=== PATIENT | male | born 1955 | race Caucasian/White ===

== ENCOUNTER 2020-04-06 08:51 | Emergency (ER) | payer MEDICARE ==
[~2020-04-06] VITALS: Ht 172.7 cm; Wt 82.1 kg
[2020-04-06] MEDS ORDERED: SODIUM CHLORIDE 0.9% 1000ML 1,000 ML IV STA (09:23)
[2020-04-06] MEDS ORDERED: ONDANSETRON HCL INJ 2MG/ML 2ML 2 MG/ML VIAL IV NR (09:30)
[2020-04-06] MEDS ORDERED: MORPHINE SULFATE 2 MG/ML SYR 1ML IV NR (09:30)
[2020-04-06 09:35] LABS: BASOPHILS % 0.2 % (0.0-1.0); EOSINOPHILS % 0.2 % (0.0-6.0); HEMATOCRIT 40.3 % (38.2-49.6); HEMOGLOBIN 13.3 g/dL (14.0-18.0); LYMPHOCYTES # (AUTO) 1.3 (1.0-3.2); LYMPHOCYTES % 10.6 % (18.0-39.1); MEAN CORPUSCULAR VOLUME 93.9 fL (81-99); MONOCYTES # (AUTO) 0.9 (0.2-0.8); MONOCYTES % 7.5 % (4.4-11.3); NEUTROPHILS # (AUTO) 9.9 (2.1-6.9); NEUTROPHILS % 81.1 % (38.7-80.0); PLATELET COUNT 286 x10e3/uL (140-360); RED BLOOD COUNT 4.29 x10e6/uL (4.3-5.7)
[2020-04-06 09:40] LABS: BILIRUBIN,URINE NEGATIVE (NEGATIVE); CLARITY,URINE HAZY (CLEAR); COLOR,URINE YELLOW (YELLOW); KETONES,URINE NEGATIVE (NEGATIVE); LEUKOCYTE ESTERASE ,URINE NEGATIVE (NEGATIVE); NITRITE,URINE NEGATIVE (NEGATIVE); PROTEIN,URINE DIPSTICK 1+ (NEGATIVE); URINE UROBILINOGEN 0.2 mg/dL (0.2 - 1)
[2020-04-06 09:44] LABS: INR 0.93; PROTHROMBIN TIME 12.9 seconds (11.9-14.5)
[2020-04-06 09:45] LABS: PARTIAL THROMBOPLASTIN TIME 34.7 seconds (23.8-35.5)
[2020-04-06 09:51] LABS: BACTERIA,URINE MODERATE /HPF; EPITHELIAL CELLS,URINE FEW /LPF; MUCUS,URINE FEW (RARE); RBC,URINE >50 /HPF (0-5)
[2020-04-06 09:55] LABS: ALBUMIN 3.8 g/dL (3.5-5.0); ANION GAP 13.2 mmol/L (8-16); CALCIUM 8.6 mg/dL (8.4-10.2); CREATININE, SERUM 1.31 mg/dL (0.72-1.25); POTASSIUM 4.2 mmol/L (3.5-5.1)
[2020-04-06] MEDS ORDERED: PIPER-TAZ 3.375 GM 50 ML IV ONE (10:00)
[2020-04-06 10:01] LABS: CREATINE KINASE MB 3.4 ng/mL (0-5.0)
--- NOTE | 2020-04-06 10:10 | Emergency Department Note ---
History of Present Illnes History of Present Illness Chief Complaint: Abdominal Complaints History of Present Illness This is a 64 year old male AFTER URINATING EARLY AM HE BEGAN HAVING SHARP LEFT LOWER QUADRANT PAIN WITH NAUSEA. VOMITED X1. DENIES ANY CHEST PAIN, SHORTNESS OF BREATH OR BLOOD IN STOOL. C/O OF LEFT FLANK PAIN ON ASSESSMENT AND TOOK TRAMADOL (6 YRS OLD PILLS) FOR HIS PAIN. Historian: Patient Arrival Mode: Car Additional Treatment THERMOSCREW OPERATOR: NONE Bedspring Assembler Required: No Onset (how long ago): hour(s) Location: LEFT FLANK TO LEFT ABD Quality: SHARP PAIN Radiation: Reports abdomen Severity: severe Onset quality: sudden Timing of current episode: intermittent Progression: waxing and waning Chronicity: new Relieving factors: none Exacerbating factors: none Associated symptoms: Reports nausea/vomiting Past Medical/Family History Physician Review I have reviewed the patient's past medical and family history. Any updates have been documented here. 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 Past Surgical History: Hernia Repair Other Surgery: LEFT ELBOW BILATERAL KNEE CARPAL TUNNEL Social History Smoking Cessation: Current every day smoker Counseling Performed: Yes Alcohol Use: None Any Illegal Drug Use: No TB Exposure/Symptoms: No Physically hurt or threatened: No Family History Family history of heart diseas: No Other Any Pre-Existing Lines (PICC,: No Review of Systems Review of Systems Constitutional: Reports no symptoms EENTM: Reports no symptoms Cardiovascular: Reports no symptoms Respiratory: Reports no symptoms Gastrointestinal: Reports as per HPI Genitourinary: Reports no symptoms Musculoskeletal: Reports no symptoms Integumentary: Reports no symptoms Neurological: Reports no symptoms Psychological: Reports no symptoms Endocrine: Reports no symptoms Hematological/Lymphatic: Reports no symptoms Physical Exam Related Data Allergies: Coded Allergies: No Known Allergies (Unverified , 04/06/20) Triage Vital Signs Vital Signs Date Time Temp Pulse Resp B/P (MAP) Pulse Ox O2 Delivery O2 Flow Rate FiO2 04/06/20 08:54 97.8 89 18 161/91 100 Room Air Vital signs reviewed: Yes Physical Exam CONSTITUTIONAL Constitutional: Present well-developed, Present well-nourished HENT HENT: Present normocephalic, Present atraumatic, Present oropharynx clear/moist, Present nose normal HENT L/R: Present left ext ear normal, Present right ext ear normal EYES Eyes: Reports PERRL, Reports conjunctivae normal NECK Neck: Present ROM normal PULMONARY Pulmonary: Present effort normal, Present breath sounds normal CARDIOVASCULAR Cardiovascular: Present regular rhythm, Present heart sounds normal, Present capillary refill normal, Present normal rate GASTROINTESTINAL Abdominal: Present soft, Present bowel sounds normal, Present tender (MILD TTP LLQ WITHOUT R/G); Absent guarding, Absent rebound GENITOURINARY Genitourinary: Present exam deferred SKIN Skin: Present warm, Present dry MUSCULOSKELETAL Musculoskeletal: Present ROM normal NEUROLOGICAL Neurological: Present alert, Present oriented x 3, Present no gross motor or sensory deficits PSYCHOLOGICAL Psychological: Present mood/affect normal, Present judgement normal Results Laboratory Result Diagram: 04/06/2015 04/06/20 0915 Laboratory Laboratory Tests Test 04/06/20 09:15 White Blood Count 12.22 x10e3/uL (4.8-10.8) Red Blood Count 4.29 x10e6/uL (4.3-5.7) Hemoglobin 13.3 g/dL (14.0-18.0) Hematocrit 40.3 % (38.2-49.6) Mean Corpuscular Volume 93.9 fL (81-99) Mean Corpuscular Hemoglobin 31.0 pg (28-32) Mean Corpuscular Hemoglobin Concent 33.0 g/dL (31-35) Red Cell Distribution Width 14.0 % (11.7-14.4) Platelet Count 286 x10e3/uL (140-360) Neutrophils (%) (Auto) 81.1 % (38.7-80.0) Lymphocytes (%) (Auto) 10.6 % (18.0-39.1) Monocytes (%) (Auto) 7.5 % (4.4-11.3) Eosinophils (%) (Auto) 0.2 % (0.0-6.0) Basophils (%) (Auto) 0.2 % (0.0-1.0) Neutrophils # (Auto) 9.9 (2.1-6.9) Lymphocytes # (Auto) 1.3 (1.0-3.2) Monocytes # (Auto) 0.9 (0.2-0.8) Eosinophils # (Auto) 0.0 (0.0-0.4) Basophils # (Auto) 0.0 (0.0-0.1) Absolute Immature Granulocyte (auto 0.05 x10e3/uL (0-0.1) Prothrombin Time 12.9 seconds (11.9-14.5) Prothromb Time International Ratio 0.93 Activated Partial Thromboplast Time 34.7 seconds (23.8-35.5) Urine Color Yellow (YELLOW) Urine Clarity Hazy (CLEAR) Urine pH 6 (5 - 7) Urine Specific [place] >=1.030 (1.010-1.025) Urine Protein 1+ (NEGATIVE) Urine Glucose (UA) Negative (NEGATIVE) Urine Ketones Negative (NEGATIVE) Urine Blood Large (NEGATIVE) Urine Nitrite Negative (NEGATIVE) Urine Bilirubin Negative (NEGATIVE) Urine Urobilinogen 0.2 mg/dL (0.2 - 1) Urine Leukocyte Esterase Negative (NEGATIVE) Urine RBC >50 /HPF (0-5) Urine WBC 6-10 /HPF (0-5) Urine Epithelial Cells Few /LPF (NONE) Urine Bacteria Moderate /HPF (NONE) Urine Mucus Few (RARE) Sodium Level 136 mmol/L (136-145) Potassium Level 4.2 mmol/L (3.5-5.1) Chloride Level 105 mmol/L (98-107) Carbon Dioxide Level 22 mmol/L (22-29) Anion Gap 13.2 mmol/L (8-16) Blood Urea Nitrogen 28 mg/dL (7-26) Creatinine 1.31 mg/dL (0.72-1.25) Estimat Glomerular Filtration Rate 55 ML/MIN (60-) BUN/Creatinine Ratio 21 (6-25) Glucose Level 113 mg/dL (74-118) Calcium Level 8.6 mg/dL (8.4-10.2) Magnesium Level 2.0 MG/DL (1.3-2.1) Total Bilirubin 0.3 mg/dL (0.2-1.2) Aspartate Amino Transf (AST/SGOT) 16 IU/L (5-34) Alanine Aminotransferase (ALT/SGPT) 12 IU/L (0-55) Alkaline Phosphatase 76 IU/L (40-150) Creatine Kinase 104 IU/L (30-200) Creatine Kinase MB 3.40 ng/mL (0-5.0) Troponin I 0.010 ng/mL (0-0.300) Total Protein 7.5 g/dL (6.5-8.1) Albumin 3.8 g/dL (3.5-5.0) Globulin 3.7 g/dL (2.3-3.5) Albumin/Globulin Ratio 1.0 (0.8-2.0) Amylase Level 81 U/L (25-125) Lipase 57 U/L (8-78) Lab results reviewed: Yes Imaging Imaging results reviewed: Yes Impressions EXAM: CT Abdomen and Pelvis WITHOUT contrast INDICATION: Stone Protocol, LEFT SIDED ABD PAIN COMPARISON: None. TECHNIQUE: Abdomen and pelvis were scanned utilizing a multidetector helical scanner from the lung base to the pubic symphysis without administration of IV contrast. Absence of intravenous contrast decreases sensitivity for detection of focal lesions and vascular pathology. Coronal and sagittal reformations were obtained. Routine protocol was performed. IV CONTRAST: None ORAL CONTRAST: None COMPLICATIONS: None RADIATION DOSE: Total DLP: 413 mGy*cm Estimated effective dose: (DLP x 0.015 x size factor) mSv CTDIvol has been reviewed. It is below the limits set by the Radiation Protocol Committee (RPC). Dose modulation, iterative reconstruction, and/or weight based adjustment of the mA/kV was utilized to reduce the radiation dose to as low as reasonably achievable. FINDINGS: LINES and TUBES: None. LOWER THORAX: There is bibasilar atelectasis. There is atherosclerotic calcification of coronary vessels. HEPATOBILIARY: No focal hepatic lesions. No biliary ductal dilation. GALLBLADDER: No radio-opaque stones or sludge. No wall thickening. SPLEEN: No splenomegaly. PANCREAS: No focal masses or ductal dilatation. ADRENALS: There is a 3.5 cm left adrenal adenoma. The right adrenal gland is normal. KIDNEYS/URETERS: There is a 3 mm obstructive stone in the left distal ureter (series 3 image 157; series 401 image 74) with mild left hydroureteronephrosis. Nonspecific left perinephric fat stranding is suggestive of forniceal rupture. There is a 1 mm nonobstructive stone in the midpole of the left kidney. The right kidney is normal. GI TRACT: Small hiatal hernia. No abnormal distention, wall thickening, or evidence of bowel obstruction. Appendix is normal. PELVIC ORGANS/BLADDER: Unremarkable. LYMPH NODES: No lymphadenopathy. VESSELS: There is moderate atherosclerotic disease in the aorta and major arterial branches. PERITONEUM / RETROPERITONEUM: No free air or fluid. BONES: There are degenerative changes in the spine. 8 mm lucent lesion with sclerotic margins in the right iliac bone adjacent to the sacroiliac joint. SOFT TISSUES: Unremarkable. IMPRESSION: 1. A 3 mm obstructive stone in the left distal ureter (series 3 image 157; series 401 image 74) with mild left hydroureteronephrosis. 2. Nonobstructive 1 mm left renal stone. 3. A 3.5 cm left adrenal adenoma 4. Small hiatal hernia. 5. An 8 mm lucent lesion with sclerotic margins in the right iliac bone adjacent to the sacroiliac joint. This finding is nonspecific, however, in the absence of known malignancy this is likely benign. Signed by: Imelda Kevin MD on 04/06/2020 10:55 AM Procedures 12 Lead ECG Interpretation ECG Interpretation : ECG: ECG 1 Bedspring Assembler: Interpreted by ED physician Date: Apr 06, 2020 Time: 09:59 Rhythm: sinus rhythm Rate: normal BPM: 99 QRS axis: normal ST segments normal: Yes T waves normal: Yes Clinical Impression: normal ECG Assessment & Plan Medical Decision Making MDM LEFT FLANK/ABD PAIN, TTP LLQ - CBC, CHEM, UA, CT ABD/PELVIS - R/O URETEROLITHIASIS, UTI/PYELO, DIVERTICULITIS, COLITIS Reassessment Reassessment IMPROVED WITH MEDS/IVF'S. DC HOME, STRAIN ALL URINE, FLOMAX, TYL #3, ZOFRAN, OTC IBUPROFEN, CEFTIN 500 BID X 10 DAYS Assessment & Plan Final Impression: (1) Ureterolithiasis Depart Disposition: HOME, SELF-CARE Last Vital Signs Date Time Temp Pulse Resp B/P (MAP) Pulse Ox O2 Delivery O2 Flow Rate FiO2 04/06/20 08:54 97.8 89 18 161/91 100 Room Air Medications in the ED Morphine Sulfate 4 mg ONCE IV Last administered on 04/06/20at 09:49; Admin Dose 4 MG; Start 04/06/20 at 09:30; Stop 04/13/20 at 10:00 Ondansetron HCl 4 mg ONCE IV Last administered on 04/06/20at 09:51; Admin Dose 4 MG; Start 04/06/20 at 09:30; Stop 04/06/20 at 10:59 Sodium Chloride 1,000 ml @ 0 mls/hr Q0M STAT IV Last administered on 04/06/20at 09:36; Admin Dose 999 MLS/HR; Start 04/06/20 at 09:23; Stop 04/06/20 at 09:48; Status DC Piperacillin Sod/ Tazobactam Sod 50 ml @ 50 mls/hr NOW ONCE IV ; Start 04/06/20 at 10:00; Stop 04/06/20 at 10:59 TONIO RIVER MD Apr 06, 2020 10:10
--- NOTE | 2020-04-06 10:44 | Diagnostic Imaging Report ---
EXAMINATION: CHEST SINGLE (PORTABLE) INDICATION: ABD PAIN COMPARISON: Same day abdomen/pelvic CT. FINDINGS: TUBES and LINES: None. LUNGS: Low lung volume on the left. There are platelike opacities at the bilateral lung bases, left more to right. PLEURA: No pleural effusion or pneumothorax. HEART AND MEDIASTINUM: The cardiomediastinal silhouette is unremarkable. BONES AND SOFT TISSUES: No acute osseous lesion. Median sternotomy wires are intact. Soft tissues are unremarkable. UPPER ABDOMEN: No free air under the diaphragm. IMPRESSION: Platelike opacities at bilateral lung bases, left more to right, which most likely represents atelectasis. No focal consolidation, pleural effusion or pneumothorax. Signed by: Imelda Kevin MD on 04/06/2020 10:41 AM
--- NOTE | 2020-04-06 10:59 | Diagnostic Imaging Report ---
EXAM: CT Abdomen and Pelvis WITHOUT contrast INDICATION: Stone Protocol, LEFT SIDED ABD PAIN COMPARISON: None. TECHNIQUE: Abdomen and pelvis were scanned utilizing a multidetector helical scanner from the lung base to the pubic symphysis without administration of IV contrast. Absence of intravenous contrast decreases sensitivity for detection of focal lesions and vascular pathology. Coronal and sagittal reformations were obtained. Routine protocol was performed. IV CONTRAST: None ORAL CONTRAST: None COMPLICATIONS: None RADIATION DOSE: Total DLP: 413 mGy*cm Estimated effective dose: (DLP x 0.015 x size factor) mSv CTDIvol has been reviewed. It is below the limits set by the Radiation Protocol Committee (RPC). Dose modulation, iterative reconstruction, and/or weight based adjustment of the mA/kV was utilized to reduce the radiation dose to as low as reasonably achievable. FINDINGS: LINES and TUBES: None. LOWER THORAX: There is bibasilar atelectasis. There is atherosclerotic calcification of coronary vessels. HEPATOBILIARY: No focal hepatic lesions. No biliary ductal dilation. GALLBLADDER: No radio-opaque stones or sludge. No wall thickening. SPLEEN: No splenomegaly. PANCREAS: No focal masses or ductal dilatation. ADRENALS: There is a 3.5 cm left adrenal adenoma. The right adrenal gland is normal. KIDNEYS/URETERS: There is a 3 mm obstructive stone in the left distal ureter (series 3 image 157; series 401 image 74) with mild left hydroureteronephrosis. Nonspecific left perinephric fat stranding is suggestive of forniceal rupture. There is a 1 mm nonobstructive stone in the midpole of the left kidney. The right kidney is normal. GI TRACT: Small hiatal hernia. No abnormal distention, wall thickening, or evidence of bowel obstruction. Appendix is normal. PELVIC ORGANS/BLADDER: Unremarkable. LYMPH NODES: No lymphadenopathy. VESSELS: There is moderate atherosclerotic disease in the aorta and major arterial branches. PERITONEUM / RETROPERITONEUM: No free air or fluid. BONES: There are degenerative changes in the spine. 8 mm lucent lesion with sclerotic margins in the right iliac bone adjacent to the sacroiliac joint. SOFT TISSUES: Unremarkable. IMPRESSION: 1. A 3 mm obstructive stone in the left distal ureter (series 3 image 157; series 401 image 74) with mild left hydroureteronephrosis. 2. Nonobstructive 1 mm left renal stone. 3. A 3.5 cm left adrenal adenoma 4. Small hiatal hernia. 5. An 8 mm lucent lesion with sclerotic margins in the right iliac bone adjacent to the sacroiliac joint. This finding is nonspecific, however, in the absence of known malignancy this is likely benign. Signed by: Imelda Kevin MD on 04/06/2020 10:55 AM
== END 2020-04-06 11:33 | disposition home or self-care (01) ==
LOC: EDBD 08:58 → ER 08:58
DX: R10.32 Left lower quadrant pain (principal); R11.2 Nausea with vomiting, unspecified; N20.2 Calculus of kidney with calculus of ureter; K44.9 Diaphragmatic hernia without obstruction or gangrene; I10 Essential (primary) hypertension; E78.5 Hyperlipidemia, unspecified; I25.10 Atherosclerotic heart disease of native coronary artery without angina pectoris; I25.2 Old myocardial infarction; Z95.1 Presence of aortocoronary bypass graft; F17.210 Nicotine dependence, cigarettes, uncomplicated
CPT/HCPCS: 36415; 71045; 74176; 80053; 81001; 82150; 82550; 82553; 83690; 83735; 84484; 85025; 85610; 85730; 87086; 93005; 99284; J2270; J2405; J2543; J7030

== ENCOUNTER → 2020-04-21 | Outpatient (RCR) | payer MEDICARE | LOC: EDBD → PT 04-11 09:04 | PROVIDERS: ATTEND Specialist | DX: M17.11 Unilateral primary osteoarthritis, right knee (principal); S93.401A Sprain of unspecified ligament of right ankle, initial encounter ==

== ENCOUNTER 2020-05-07 09:42 | Outpatient (RCR) | payer MEDICARE | END 2020-05-22 | LOC: PT 09:42 | PROVIDERS: ATTEND Specialist | DX: M17.11 Unilateral primary osteoarthritis, right knee (principal); S93.401A Sprain of unspecified ligament of right ankle, initial encounter ==

== ENCOUNTER 2023-09-17 20:57 | Emergency (ER) | payer MEDICARE ==
[~2023-09-17] VITALS: Ht 172.7 cm; Wt 82.1 kg
[2023-09-17 21:56] LABS: INFLUENZAE A&B ANTIGEN (RAPID) NEGATIVE (NEGATIVE); RESPIRATORY SYNC. VIRUS NEGATIVE (NEGATIVE); STREPTOCOCCUS GRP A ANTIGEN NEGATIVE (NEGATIVE)
[2023-09-17] MEDS ORDERED: DOXYCYCLINE HY100 MG PO (22:23)
[2023-09-17] MEDS: DOXYCYCLINE HYCLATE TABLET 100 MG TAB PO ONE (22:29)
[2023-09-17 22:32] VITALS: BP 129/66; PULSE 69; RESP 18; TEMP 98.3; O2SAT 100
== END 2023-09-17 22:34 | disposition home or self-care (01) ==
LOC: ER 21:00
DX: R05.9 Cough, unspecified (principal); J18.9 Pneumonia, unspecified organism; I10 Essential (primary) hypertension; E78.5 Hyperlipidemia, unspecified; I25.10 Atherosclerotic heart disease of native coronary artery without angina pectoris; H53.9 Unspecified visual disturbance; Z11.52 Encounter for screening for COVID-19; I25.2 Old myocardial infarction; Z87.442 Personal history of urinary calculi; Z95.1 Presence of aortocoronary bypass graft
CPT/HCPCS: 71045; 83518; 87070; 87400; 87420; 99283; U0002